=== PATIENT | male | born 1945 | race Caucasian/White ===

== ENCOUNTER → 2016-12-12 | Outpatient (CLI) | payer OTHER, MEDICARE ==
[~2016-12-12] MED LIST: CHOLTAB3 PO; FLM4 PO; MEDLIST; TRAM-10 PO; TRAMTAB5 PO
--- NOTE | 2016-12-12 13:53 | DIAGNOSTIC IMAGING REPORT ---
KUB CLINICAL HISTORY: N40.1 Benign prostatic hypertrophy with urinary [id number] COMPARISON STUDY: 12/28/2015 FINDINGS: There is no pathologic bowel dilatation. There is a 3 mm calcification projected over the upper pole the right kidney consistent with a calculus. There are few faint opacities projected over the left kidney. It is not possible to differentiate overlying enteric contents from tiny calculi. Pelvic basin calcifications remain similar to the prior study and likely represent phleboliths. IMPRESSION: 1. No evidence of pathologic bowel dilatation 2. 3 mm upper pole right renal calculus 4. Punctate left renal calculi versus overlying enteric contents Electronically signed by: Pedro Pablo Mcneill M.D. 12/12/2016 1:52 PM Dictated Date/Time: 12/12/2016 1:50 PM
== END | disposition home or self-care (01) ==
LOC: C.RAD 13:18
PROVIDERS: ATTEND Urology
DX: N20.0 Calculus of kidney (principal); N40.1 Benign prostatic hyperplasia with lower urinary tract symptoms; R35.1 Nocturia

== ENCOUNTER → 2016-12-12 | Outpatient (CLI) | payer OTHER, MEDICARE ==
[2016-12-12 12:51] LABS: BLOOD UREA NITROGEN 15 mg/dl (7-18); BUN/CREATININE RATIO 13.2 (10-20)
== END | disposition home or self-care (01) ==
LOC: C.LABPBG 10:47
PROVIDERS: ATTEND Urology
DX: N40.1 Benign prostatic hyperplasia with lower urinary tract symptoms (principal); R35.1 Nocturia; N20.0 Calculus of kidney

== ENCOUNTER → 2018-01-26 | Outpatient (CLI) | payer OTHER, MEDICARE ==
[2018-01-26 14:04] LABS: BLOOD UREA NITROGEN 14 mg/dl (7-18); CREATININE 1.06 mg/dl (0.60-1.40)
== END | disposition home or self-care (01) ==
LOC: C.LABPBG 09:47
PROVIDERS: ATTEND Urology
DX: N40.1 Benign prostatic hyperplasia with lower urinary tract symptoms (principal)

== ENCOUNTER → 2018-02-09 | Outpatient (CLI) | payer OTHER, MEDICARE ==
--- NOTE | 2018-02-09 11:40 | DIAGNOSTIC IMAGING REPORT ---
KUB CLINICAL HISTORY: Benign prostatic hypertrophy. Nephrolithiasis. FINDINGS: 2 AP supine abdominal radiographs are compared to study dated 12/12/2016. 2 nonobstructing calculi measuring up to 5 mm project over the right kidney. No calcifications are seen projecting over the left kidney or along the course of the ureters. Phleboliths and prostatic calcifications are present in the pelvis. There is no bowel obstruction. The skeletal structures are osteopenic. Mild lumbosacral spondylosis is observed. IMPRESSION: 1. There are 2 nonobstructing calculi projecting over the right kidney. 2. No calculi are seen projecting over the left kidney or along the course of the ureters. Electronically signed by: Pierre Rodriguez M.D. 02/09/2018 11:39 AM Dictated Date/Time: 02/09/2018 11:37 AM
== END | disposition home or self-care (01) ==
LOC: C.RAD 10:49
PROVIDERS: ATTEND Urology
DX: N40.1 Benign prostatic hyperplasia with lower urinary tract symptoms (principal); N20.0 Calculus of kidney